=== PATIENT | female | born 1990 | race Two or more races ===

== ENCOUNTER 2019-09-25 08:19 | Emergency (ER) | payer MEDICARE, MEDICAID ==
[~2019-09-25] VITALS: Ht 154.9 cm; Wt 52.2 kg
[2019-09-25 08:55] VITALS: BP 132/79
== END 2019-09-25 09:23 | disposition home or self-care (01) ==
LOC: ER 08:19
DX: J02.9 Acute pharyngitis, unspecified (principal); J06.9 Acute upper respiratory infection, unspecified

== ENCOUNTER 2019-11-08 22:21 | Inpatient (IN) | payer MEDICARE, MEDICAID ==
[~2019-11-08] VITALS: Ht 152.4 cm; Wt 58.1 kg
[~2019-11-08 22:21] MED LIST: ACET325T82 PO; BISA5TAB PO; CALC0.25 PO; CLO01T PO; DIPH25CA66 PO; DOCU100T15 PO; GABA100C PO; MELA3TAB27 PO; MYCO180T PO; ONDA-144 PO; PANT40TA2 PO; POLY33504 PO; PRED-158 PO; SODI650T PO; TACR1GRA PO; VALG450T PO; [UNRECOGNIZED DRUG - CODE] PO
[2019-11-09] MEDS ORDERED: LORazepam 2MG/ML-1ML VIAL IV ONE (00:15)
[2019-11-09] MEDS ORDERED: ONDANSETRON HCL 4 MG/2 ML VIAL IV ONE (00:15)
[2019-11-09] MEDS ORDERED: MORPHINE SULFATE 4 MG/ML SYR/VIAL IV ONE (00:15)
[2019-11-09] MEDS ORDERED: SODIUM CHLORIDE 0.9% 1,000 ML IV ONE ×2 (00:15→01:30)
[2019-11-09 00:48] LABS: Albumin 3.3 g/dL (3.4-5.0); BUN/Creatinine Ratio 13.1; Calcium 9.1 mg/dL (8.5-10.1); Magnesium 1.5 mg/dL (1.6-2.6); Potassium 4.2 mmol/L (3.5-5.1)
[2019-11-09 00:57] LABS: Thyroid Stimulating Hormone 0.27 uIU/mL (0.358-3.74)
[2019-11-09 01:00] LABS: Bilirubin, Total 0.3 mg/dL (0.2-1.0); Total Protein 7.3 g/dL (6.4-8.2)
[2019-11-09] MEDS ORDERED: InsuLIN REG 1unit/0.01ml Soln (100units/ml) IV ONE (01:30)
[2019-11-09 01:45] LABS: Basophils # (auto) 0 10 ^3/uL (0-0.2); Basophils % (auto) 0.6 % (0.0-2.0); Eosinophils # (auto) 0 10 ^3/uL (0-0.8); Eosinophils % (auto) 0.3 % (0.0-7.0); Hematocrit 26.6 % (36.0-46.0); Hemoglobin 8.6 g/dL (12.2-16.2); Lymphocytes # (auto) 0.5 10 ^3/uL (0.4-5.4); Lymphocytes % (auto) 19.5 % (10.0-50.0); Mean Corpuscular Hemoglobin 28.8 pg (28.0-32.0); Mean Corpuscular Hgb Conc. 32.3 g/dL (32.0-36.0); Mean Corpuscular Volume 89.2 fL (80.0-100.0); Monocytes # (auto) 0.1 10 ^3/uL (0-1.3); Monocytes % (auto) 4.6 % (0.0-12.0); Platelet Count (auto) 101 10^3/uL (140-450); Red Blood Cells 2.98 10^6/uL (4.0-5.20); White Blood Cell 2.7 10^3/uL (4.4-10.8)
[2019-11-09 01:46] LABS: Red Cell Distribution Width 21.1 % (11.8-14.3)
[2019-11-09 01:59] LABS: INR 1.13 (0.9-1.15); Partial Thromboplastin Time 26.7 sec (23.64-32.05)
[2019-11-09] MEDS ORDERED: HYDROcodone-ACET 5/325MG TAB PO PRN (04:15)
[2019-11-09] MEDS ORDERED: BISACODYL 5 MG EC TAB PO PRN (04:15)
[2019-11-09] MEDS ORDERED: ACETAMINOPHEN 325 MG TAB PO PRN ×2 (04:15)
[2019-11-09] MEDS ORDERED: MORPHINE SULF INJ 2 MG/ML SYRINGE 1ML IV PRN ×2 (04:15→07:00)
[2019-11-09] MEDS ORDERED: ONDANSETRON ODT 4 MG TAB PO PRN (04:15)
[2019-11-09] MEDS ORDERED: ONDANSETRON HCL 4 MG/2 ML VIAL IV PRN (04:15)
[2019-11-09] MEDS ORDERED: DOCUSATE SOD 100 MG CAP PO PRN (04:15)
[2019-11-09] MEDS ORDERED: diphenhdrAMINE HCL 25 MG CAP PO PRN (04:15)
[2019-11-09] MEDS ORDERED: MORPHINE SULFATE 4 MG/ML SYR/VIAL IV PRN (04:15)
[2019-11-09] MEDS ORDERED: NITROGLYCERIN 0.4 MG SL TAB SL PRN (04:15)
[2019-11-09] MEDS ORDERED: DEXTROSE (50%) 50ML SYRG IV PRN (04:15)
[2019-11-09] MEDS ORDERED: PATIENTS OWN MEDICATION (Docusate Sodium 100 MG) PO PRN (04:15)
[2019-11-09 06:30] LABS: Basophils # (auto) 0 10 ^3/uL (0-0.2); Basophils % (auto) 0.8 % (0.0-2.0); Eosinophils # (auto) 0 10 ^3/uL (0-0.8); Eosinophils % (auto) 0.4 % (0.0-7.0); Hemoglobin 8.3 g/dL (12.2-16.2); Lymphocytes # (auto) 0.7 10 ^3/uL (0.4-5.4); Mean Corpuscular Hemoglobin 28.9 pg (28.0-32.0); Mean Corpuscular Hgb Conc. 31.8 g/dL (32.0-36.0); Mean Corpuscular Volume 90.9 fL (80.0-100.0); Monocytes # (auto) 0.1 10 ^3/uL (0-1.3); Monocytes % (auto) 4.2 % (0.0-12.0); Neutrophils # (auto) 1.7 10 ^3/uL (1.6-8.6); Neutrophils % (auto) 67.6 % (37.0-80.0); Nucleated Red Blood Cells % 0.1 %; Platelet Count (auto) 98 10^3/uL (140-450); Red Blood Cells 2.86 10^6/uL (4.0-5.20); White Blood Cell 2.5 10^3/uL (4.4-10.8)
[2019-11-09 06:32] LABS: Red Cell Distribution Width 21.3 % (11.8-14.3)
[2019-11-09] MEDS: SODIUM BICARBONATE 650 MG TAB PO SCH ×3 (06:53→17:30)
[2019-11-09] MEDS: cloNIDine HCL 0.1 MG TAB PO PRN (06:53)
[2019-11-09] MEDS: GABAPENTIN 100 MG CAP PO SCH ×3 (06:54→21:34)
--- NOTE | 2019-11-09 08:00 | NUR ---
Telemetry admit from ABDIR[facility] LEWIS admitted to Telemetry unit after minimal SBAR received. Patient oriented to Macey Mancilla, primary RN, unit, room, bed, and unit policies regarding patient care and visiting hours. Patient now on continuous telemetry monitoring, tele box # 25 and telemetry reading on arrival to unit is sinus tach at 109. Updated on POC and instructed to call for assistance as needed, patient verbalized understanding. Bed locked in lowest position, side rails up x2, call light within reach. Will continue to monitor q1hr and PRN.
[2019-11-09] MEDS: ACCU-CHEK COMFORT CURVE STRIP VI SCH ×4 (08:20→20:00)
[2019-11-09] MEDS: InsuLIN REG 1unit/0.01ml Soln (100units/ml) SC SCH ×4 (08:20→20:00)
[2019-11-09] MEDS: SODIUM CITRATE PO SCH ×3 (08:20→21:33)
[2019-11-09] MEDS: CITRIC ACID PO SCH ×3 (08:20→21:33)
[2019-11-09] MEDS: HYDROmorphone HCL 2 MG/ML VL IV PRN ×4 (09:32→21:34)
[2019-11-09] MEDS: predniSONE 5 MG TAB PO SCH (09:35)
[2019-11-09] MEDS: TACROLIMUS 1 MG CAP PO SCH ×2 (09:35→21:34)
[2019-11-09] MEDS: CALCITRIOL 0.25 MCG CAP PO SCH (09:35)
[2019-11-09] MEDS: POLYETHYLENE GLYCOL 17 GM PWDR PO SCH (09:36)
[2019-11-09] MEDS: MYCOPHENOLATE SODIUM 180 MG PO SCH ×2 (09:36→21:33)
[2019-11-09 09:54] VITALS: BP 161/104
[2019-11-09] MEDS ORDERED: ENOXAPARIN SOD 60 MG/0.6 ML SYRINGE SC ONE (10:00)
--- NOTE | 2019-11-09 10:02 | NUR ---
EKG COMPLETED, READ BY MD HOOPER. EKG PLACED IN CHART.
--- NOTE | 2019-11-09 10:03 | NUR ---
SPOKE WITH DR. HOOPER REGARDING PLATELET COUNT AND LOVENOX. AWARE OF PLATELET COUNT AT 98, ADVISED TO PROCEED WITH LOVENOX ORDER PATIENT HAS PULMONARY EMBOLISM.
[2019-11-09] MEDS: diphenhdrAMINE HCL 50 MG/1 ML VL IV PRN ×2 (10:25→22:35)
--- NOTE | 2019-11-09 11:15 | NUR ---
MRSA SWAB SENT TO LAB
[2019-11-09 11:20] LABS: Calcium 8.5 mg/dL (8.5-10.1); Potassium 3.9 mmol/L (3.5-5.1)
[2019-11-09 11:23] LABS: BUN/Creatinine Ratio 12.6
[2019-11-09] MEDS: MAGNESIUM SULFATE 1GM/100ML 100 ML IV SCH ×2 (11:34→13:00)
[2019-11-09 12:53] VITALS: BP 137/73
--- NOTE | 2019-11-09 14:46 | NUR ---
UA SENT TO LAB
[2019-11-09 15:36] LABS: Protein, Urine 65.9 mg/dL (0.0-11.9)
[2019-11-09 16:24] VITALS: BP 126/75
[2019-11-09] MEDS: PANTOPRAZOLE 40 MG TAB PO SCH (17:30)
[2019-11-09] MEDS: Melatonin 3 MG TAB PO SCH (17:30)
--- NOTE | 2019-11-09 20:00 | NUR ---
RECEIVED PATIENT FROM DAY SHIFT RN. PATIENT RESTING IN BED. NO S/S OF DISTRESS NOTED. C/O PAIN @ 8/10 AFTER PAIN MEDICATION GIVEN EARLIER. REINFORCED PATIENT THE SCHEDULE OF PAIN MANAGEMENT. WILL COME BACK FOR PAIN MEDICATION LATER WHEN THE TIME IS DUE AND PER PATIENT REQUESTS. POC INSTRUCTED AND ENCOURAGED PATIENT TO CALL FOR DIRECTOR OF TEACHING AND LEARNING IF NEEDED. BED IN LOWEST POSITION WITH SIDE RAILS UP X 2. CALL PHILIP WITHIN REACH. CONTINUE TO MONITOR FOR CHANGES Q1H AND PRN.
--- NOTE | 2019-11-09 20:20 | NUR ---
ACCU-CHECK, BS 278. PATIENT REFUSED INSULIN AND STATED SHE DID NOT HAVE DM. INSTRUCTED PATIENT THE NECESSARY AND BENEFITS OF TAKING INSULIN, PATIENT VERBALIZED UNDERSTANDING BUT STILL REFUSED. MD AWARE PER DAY SHIFT RN. CONTINUE TO MONITOR.
--- NOTE | 2019-11-09 21:35 | NUR ---
MEDICATED PATIENT FOR PAIN @ 10 ORDERED. CONTINUE TO MONITOR
[2019-11-09 22:00] VITALS: BP 131/99
--- NOTE | 2019-11-09 22:35 | NUR ---
MEDICATED PATIENT FOR ITCHING ORDERED. CONTINUE TO MONITOR.
[2019-11-10] MEDS: SODIUM BICARBONATE 650 MG TAB PO SCH ×4 (00:23→18:07)
[2019-11-10] MEDS: ACCU-CHEK COMFORT CURVE STRIP VI SCH ×6 (00:23→19:58)
--- NOTE | 2019-11-10 00:24 | NUR ---
ACCU-CHECK, BS 262. PATIENT STILL REFUSED INSULIN. CONTINUE TO MONITOR.
[2019-11-10] MEDS: HYDROmorphone HCL 2 MG/ML VL IV PRN ×5 (01:49→19:59)
--- NOTE | 2019-11-10 01:49 | NUR ---
MEDICATED PATIENT FOR PAIN @ 10 ORDERED. CONTINUE TO MONITOR
[2019-11-10] MEDS: InsuLIN REG 1unit/0.01ml Soln (100units/ml) SC SCH ×6 (04:00→19:58)
--- NOTE | 2019-11-10 04:29 | NUR ---
ACCU-CHECK, BS 190. PATIENT STILL REFUSED INSULIN. CONTINUE TO MONITOR.
[2019-11-10 05:00] VITALS: BP 141/104
[2019-11-10 06:10] LABS: Basophils # (auto) 0 10 ^3/uL (0-0.2); Basophils % (auto) 1.3 % (0.0-2.0); Eosinophils # (auto) 0 10 ^3/uL (0-0.8); Eosinophils % (auto) 0.6 % (0.0-7.0); Hematocrit 25.1 % (36.0-46.0); Hemoglobin 8.3 g/dL (12.2-16.2); Lymphocytes # (auto) 0.5 10 ^3/uL (0.4-5.4); Lymphocytes % (auto) 22.8 % (10.0-50.0); Mean Corpuscular Hemoglobin 29.6 pg (28.0-32.0); Mean Corpuscular Hgb Conc. 33.1 g/dL (32.0-36.0); Mean Corpuscular Volume 89.6 fL (80.0-100.0); Monocytes # (auto) 0.1 10 ^3/uL (0-1.3); Monocytes % (auto) 3.2 % (0.0-12.0); Neutrophils # (auto) 1.6 10 ^3/uL (1.6-8.6); Neutrophils % (auto) 72.1 % (37.0-80.0); Platelet Count (auto) 108 10^3/uL (140-450); Red Blood Cells 2.81 10^6/uL (4.0-5.20); White Blood Cell 2.3 10^3/uL (4.4-10.8)
[2019-11-10 06:11] LABS: Red Cell Distribution Width 20.9 % (11.8-14.3)
[2019-11-10] MEDS: GABAPENTIN 100 MG CAP PO SCH ×3 (06:16→21:24)
[2019-11-10] MEDS: diphenhdrAMINE HCL 50 MG/1 ML VL IV PRN ×2 (06:16→14:38)
[2019-11-10] MEDS: CITRIC ACID PO SCH ×3 (06:16→21:24)
[2019-11-10] MEDS: SODIUM CITRATE PO SCH ×3 (06:16→21:24)
--- NOTE | 2019-11-10 06:16 | NUR ---
MEDICATED PATIENT FOR PAIN @ 05/13 ORDERED. WELL ITCHING MEDICATION. CONTINUE TO MONITOR.
[2019-11-10 08:00] VITALS: BP 163/98
[2019-11-10] MEDS: cloNIDine HCL 0.1 MG TAB PO PRN (08:23)
[2019-11-10 08:49] LABS: BUN/Creatinine Ratio 11.1; Calcium 8.7 mg/dL (8.5-10.1); Potassium 4.6 mmol/L (3.5-5.1)
--- NOTE | 2019-11-10 08:57 | NUR ---
I called [facility] [phone] and spoke with Nursing Electrical Tech/Project Manager Arianna regarding the status of this transfer request. Per Arianna, Dr. Philip Martinez is re-evaluating the request-Arianna will give me a call back to let me know if they are willing to accept this patient.
[2019-11-10 09:00] VITALS: BP 163/98
[2019-11-10] MEDS ORDERED: ENOXAPARIN SOD 60 MG/0.6 ML SYRINGE SC SCH (10:00)
[2019-11-10] MEDS: MYCOPHENOLATE SODIUM 180 MG PO SCH ×2 (10:00→21:24)
[2019-11-10] MEDS ORDERED: VALGANCICLOVIR HYDROCHLORIDE 450 MG PO SCH (10:00)
[2019-11-10] MEDS: predniSONE 5 MG TAB PO SCH (10:23)
[2019-11-10] MEDS: POLYETHYLENE GLYCOL 17 GM PWDR PO SCH (10:24)
[2019-11-10] MEDS: TACROLIMUS 1 MG CAP PO SCH ×2 (10:24→21:24)
[2019-11-10] MEDS: CALCITRIOL 0.25 MCG CAP PO SCH (10:24)
--- NOTE | 2019-11-10 10:46 | NUR ---
DR HOOPER BEDSIDE WITH PATIENT
--- NOTE | 2019-11-10 11:53 | NUR ---
I received a call back from Nursing Crate Opener Arianna at [facility]-she let me know that they are not accepting this patient for transfer due to it being a lateral transfer-they will notify . I made Dr. Milian aware-he asked that I reach out to [facility] and [facility]. I called the [facility] Transfer Center [phone] and spoke with Randy, he said they do not do interventional cardiology at [facility]. I faxed transfer packet to [facility].
--- NOTE | 2019-11-10 12:00 | NUR ---
LOVENOX ORDER CANCELED BY DR MENESES. PER DR HOOPER, I CHECKED WITH DR MENESES REGARDING ADDING LOVENOX ORDER BACK ON FOR PE. DR MENESES IS OK WITH PATIENT RECEIVING LOVENOX. ORDERS RECEIVED AND CARRIED OUT FOR LOVENOX
--- NOTE | 2019-11-10 12:10 | NUR ---
I faxed transfer packet to [facility] Transfer [facility].
[2019-11-10 13:00] VITALS: BP 130/82
[2019-11-10 13:10] LABS: % Iron Saturation 15.3 % (15-50)
[2019-11-10] MEDS ORDERED: SODIUM FERR GLUC 62.5MG/5ML 125 MG in SODIUM CHL 0.9% 100 ML IV ONE (13:15)
--- NOTE | 2019-11-10 14:14 | NUR ---
I received a call from Lynn at [facility] Transfer [facility], provided her with additional clinical information as requested-she will give me a call back to let me know if they are able to accept this patient.
[2019-11-10] MEDS ORDERED: diphenhdrAMINE HCL 50 MG/1 ML VL ONE (14:34)
[2019-11-10] MEDS ORDERED: ENOXAPARIN SOD 60 MG/0.6 ML SYRINGE SC ONE (15:30)
[2019-11-10 16:49] VITALS: BP 132/75
[2019-11-10] MEDS: Melatonin 3 MG TAB PO SCH (18:00)
[2019-11-10] MEDS: PANTOPRAZOLE 40 MG TAB PO SCH (18:05)
--- NOTE | 2019-11-10 20:00 | NUR ---
RECEIVED PATIENT FROM DAY SHIFT RN. PATIENT RESTING IN BED. NO S/S OF DISTRESS NOTED. C/O PAIN @ 8/10. MEDICATED PATIENT ORDERED. ACCU-CHECK, BS 313. PATIENT STILL REFUSED INSULIN. MD AWARE. SWOLLEN NOTED ON LEFT WRIST. POC INSTRUCTED AND ENCOURAGED PATIENT TO CALL FOR LAWN MOWER IF NEEDED. BED IN LOWEST POSITION WITH SIDE RAILS UP X 2. CALL PHILIP WITHIN REACH. CONTINUE TO MONITOR FOR CHANGES Q1H AND PRN.
--- NOTE | 2019-11-10 20:42 | NUR ---
HOSPITALIST SEGUNDO CAME TO FLOOR FOR ROUND. REPORTED PATIENT'S LEFT WRIST SWOLLEN HURT THIS AFTERNOON. ORDERED TO MONITOR AND NO X-RAY NEEDED AT THIS TIME. CONTINUE MONITOR.
[2019-11-10] MEDS ORDERED: EPOETIN ALFA 10,000 UNIT/1 ML VIAL SC ONE (21:00)
[2019-11-10 22:00] VITALS: BP 134/95
[2019-11-11] VITALS (7 sets, daily range): BP systolic 140–163; BP diastolic 83–97
[2019-11-11] MEDS: SODIUM BICARBONATE 650 MG TAB PO SCH ×4 (00:07→17:17)
[2019-11-11] MEDS: diphenhdrAMINE HCL 50 MG/1 ML VL IV PRN ×3 (00:08→16:20)
[2019-11-11] MEDS: HYDROmorphone HCL 2 MG/ML VL IV PRN ×6 (00:09→21:20)
[2019-11-11] MEDS: ACCU-CHEK COMFORT CURVE STRIP VI SCH ×6 (00:09→20:41)
--- NOTE | 2019-11-11 00:18 | NUR ---
MEDICATED PATIENT FOR PAIN @ 05/13 ORDERED. WELL ITCHING MEDICATION. ACCU-CHECK, BS 226. PATIENT REFUSED INSULIN. CONTINUE TO MONITOR.
[2019-11-11] MEDS: InsuLIN REG 1unit/0.01ml Soln (100units/ml) SC SCH ×6 (04:00→20:15)
--- NOTE | 2019-11-11 04:06 | NUR ---
ACCU-CHECK, BS 180. PATIENT REFUSED INSULIN. MEDICATED PATIENT FOR PAIN @ 05/13 ORDERED. CONTINUE TO MONITOR
--- NOTE | 2019-11-11 04:52 | NUR ---
RECEIVED CALL FROM SHILO FROM [facility]. UPDATED ON PATIENT'S CURRENT CONDITION. WAITING FOR BED.
[2019-11-11] MEDS: GABAPENTIN 100 MG CAP PO SCH ×3 (05:37→21:45)
[2019-11-11] MEDS: CITRIC ACID PO SCH ×3 (05:37→21:44)
[2019-11-11] MEDS: SODIUM CITRATE PO SCH ×3 (05:37→21:44)
[2019-11-11 05:40] LABS: Basophils # (auto) 0 10 ^3/uL (0-0.2); Eosinophils # (auto) 0 10 ^3/uL (0-0.8); Hemoglobin 7.8 g/dL (12.2-16.2); Lymphocytes # (auto) 0.6 10 ^3/uL (0.4-5.4); Monocytes # (auto) 0.1 10 ^3/uL (0-1.3)
[2019-11-11 05:46] LABS: Basophils % (auto) 1.6 % (0.0-2.0); Hematocrit 23.2 % (36.0-46.0); Lymphocytes % (auto) 34.2 % (10.0-50.0); Mean Corpuscular Hemoglobin 29.7 pg (28.0-32.0); Mean Corpuscular Hgb Conc. 33.4 g/dL (32.0-36.0); Monocytes % (auto) 5.8 % (0.0-12.0); Neutrophils % (auto) 57.4 % (37.0-80.0); Platelet Count (auto) 93 10^3/uL (140-450); Red Blood Cells 2.61 10^6/uL (4.0-5.20)
[2019-11-11 05:49] LABS: Red Cell Distribution Width 21.1 % (11.8-14.3); White Blood Cell 1.8 10^3/uL (4.4-10.8)
--- NOTE | 2019-11-11 05:50 | NUR ---
CRITICAL RECEIVED CRITICAL CALL FROM ISREAL ALMOND ROASTER, PATIENT'S WBC 1.8. WILL PAGE HOSPITALIST. CONTINUE TO MONITOR.
[2019-11-11 06:01] LABS: Calcium 8.5 mg/dL (8.5-10.1); Potassium 4.1 mmol/L (3.5-5.1)
[2019-11-11 06:03] LABS: BUN/Creatinine Ratio 9.9
--- NOTE | 2019-11-11 06:06 | NUR ---
HOSPITALIST Called/paged NANCY RAYMOND called re:PATIENT'S CRITICAL WBC 1.8. Waiting for call back. Continue care.
--- NOTE | 2019-11-11 06:19 | NUR ---
HOSPITALIST returned call NANCY RAYMOND returned call, updated on patient status and reason for call, NO NEW ORDER RECEIVED. Continue care.
--- NOTE | 2019-11-11 09:24 | NUR ---
I received a call from Nancy at the [facility] Transfer Center letting me know that per Dr. Milian he wants a hospitalist to accept this patient-not cardiology and they are at capacity for their medical hospitalists-they can not accept this patient at this time.
--- NOTE | 2019-11-11 09:40 | NUR ---
DR THOMAS ON UNIT
[2019-11-11] MEDS: MYCOPHENOLATE SODIUM 180 MG PO SCH ×2 (09:44→21:44)
[2019-11-11] MEDS: predniSONE 5 MG TAB PO SCH (09:44)
[2019-11-11] MEDS: CALCITRIOL 0.25 MCG CAP PO SCH (09:45)
[2019-11-11] MEDS: TACROLIMUS 1 MG CAP PO SCH ×2 (09:45→21:45)
[2019-11-11] MEDS: POLYETHYLENE GLYCOL 17 GM PWDR PO SCH (09:45)
--- NOTE | 2019-11-11 10:56 | NUR ---
RECEIVED COMMUNICATION ORDER FROM DR THOMAS TO HAVE LAB SEND CMV VIRAL LOAD. SPOKE TO DINA IN LAB WHO SAID SHE WILL HANDLE.
--- NOTE | 2019-11-11 11:06 | NUR ---
DR HOOPER REQUESTED SCD'S TO BE PLACED ON PATIENT. UNABLE TO PLACE ORDER THE SYSTEM GENERATES A MESSAGE THAT THIS IS A DUPLICATE ORDER AND I CANNOT OVERRIDE. SCD'S PLACED ON PATIENT
--- NOTE | 2019-11-11 11:45 | NUR ---
PAGED DR THOMAS REGARDING PHARMACIST QUESTIONS ON THE ORDER FOR GANCICLOVIR.
[2019-11-11] MEDS ORDERED: IRON SUCROSE COMPLEX 200 MG in SODIUM CHL 0.9% 100 ML IV SCH (12:00)
[2019-11-11] MEDS: SODIUM FERR GLUC 62.5MG/5ML 125 MG in SODIUM CHL 0.9% 100 ML IV SCH (12:08)
--- NOTE | 2019-11-11 13:44 | NUR ---
PHARMACIST KATHRYN SPOKE TO DR TROTTER REGARDING ORDER FOR GANCICLOVIR. GANCICLOVIR IS ON HOLD FOR NOW. I WILL INFORM DR THOMAS WHEN HE RETURNS MY PAGE
--- NOTE | 2019-11-11 14:28 | NUR ---
INFORMED DR THOMAS THAT THE GANCICLOVIR MEDICATION IS ON HOLD PER DR TROTTER WE ARE WORKING TO TRANSFER PATIENT TO A HIGHER LEVEL OF CARE.
[2019-11-11] MEDS: PANTOPRAZOLE 40 MG TAB PO SCH (17:03)
[2019-11-11] MEDS: Melatonin 3 MG TAB PO SCH (17:17)
--- NOTE | 2019-11-11 20:14 | NUR ---
Patient had a number of home medications with her at bedside. Meds placed into medication belongings bag. Will send to pharmacy in AM.
--- NOTE | 2019-11-11 20:52 | NUR ---
MD Milian called to notify me that patient was going to be transferred to [facility] under care of a transplant surgeon. Patient will be transferred tomorrow.
--- NOTE | 2019-11-11 21:58 | NUR ---
Case management for [facility] called to inform me that she had received a request from MD Milian to have patient transferred to [facility]. No beds were available at that time but she would keep me informed of any developments.
--- NOTE | 2019-11-11 22:02 | NUR ---
Evelin, transportation logistics internship for [facility], called and wanted to know why patient was set to be transferred to [facility]. Evelin stated that patient had pancreatic and kidney transplant at [facility] and should return there for treatment. I told her that MD Milian arranged the transfer. She wished to speak to him so I transferred her to [facility] to get his number.
--- NOTE | 2019-11-11 22:08 | NUR ---
Patient's mother called and expressed her concern that MD Mendez would not be treating patient. Both patient and family would like patient to be transferred to [facility] in [place].
--- NOTE | 2019-11-11 22:14 | NUR ---
MD Mendez, patient's transplant surgeon at [facility], called and spoke to me regarding patient. Per MD, patient should be taking Tacrolimus 5 mg PO BID, Predisone 10 mg PO Daily, and Myfortic 180 mg PO BID. I informed him that patient was currently taking Tacrolimus 1 mg PO BID, Prednisone 5 mg PO Daily, and Myfortic 180mg PO BID (patient has not been receiving medication because she has not brought it in).
--- NOTE | 2019-11-11 22:21 | NUR ---
MD Milian notified of MD Mendez wanting patient to be transferred to [facility], his recommended medications, and patient's family's wishes. MD Garcia will be contacting MD Mendez.
[2019-11-11] MEDS: cloNIDine HCL 0.1 MG TAB PO PRN (22:28)
[2019-11-11] MEDS ORDERED: FILGRASTIM(TBO) 480 MCG/0.8 ML SYRG SC ONE (22:30)
[2019-11-11] MEDS ORDERED: methylPREDNISolone SOD SUCC 125 MG/2 ML VL IV ONE (22:45)
--- NOTE | 2019-11-11 22:54 | NUR ---
MD Milian called and notified me of his new orders and to contact [facility] to see if bed is available.
--- NOTE | 2019-11-11 23:02 | NUR ---
Attempted to call [facility]. No response.
--- NOTE | 2019-11-11 23:58 | NUR ---
Called and left a message for Stull Installer at [facility]. Awaiting call back.
[2019-11-12] VITALS (10 sets, daily range): BP systolic 143–164; BP diastolic 85–98
[2019-11-12] MEDS: SODIUM BICARBONATE 650 MG TAB PO SCH ×4 (00:07→17:28)
[2019-11-12] MEDS: ACCU-CHEK COMFORT CURVE STRIP VI SCH ×6 (00:07→19:50)
[2019-11-12] MEDS: diphenhdrAMINE HCL 50 MG/1 ML VL IV PRN ×3 (00:08→17:18)
[2019-11-12] MEDS: InsuLIN REG 1unit/0.01ml Soln (100units/ml) SC SCH ×6 (00:30→19:50)
--- NOTE | 2019-11-12 02:00 | NUR ---
Packed red blood cell infusion started.
--- NOTE | 2019-11-12 04:12 | NUR ---
Mary from [facility] called and notified me that there was a room available. I notified her that patient would likely be transferred in AM to [facility], per MD Milian's wishes
[2019-11-12] MEDS: GABAPENTIN 100 MG CAP PO SCH ×3 (05:49→22:36)
[2019-11-12] MEDS: CITRIC ACID PO SCH ×3 (05:51→22:00)
[2019-11-12] MEDS: SODIUM CITRATE PO SCH ×3 (05:51→22:00)
[2019-11-12] MEDS: cloNIDine HCL 0.1 MG TAB PO PRN ×3 (05:52→17:29)
[2019-11-12] MEDS: HYDROmorphone HCL 2 MG/ML VL IV PRN ×4 (06:05→19:56)
--- NOTE | 2019-11-12 07:43 | NUR ---
Opening Note Assumed pt care from [facility] nurse. Pt is a/ox4 with no s/s of distress or SOB. Pt is currently sitting upright in bed with no complaints at this time. Discussed POC with pt and pending transfer; pt verbalized understanding. Safety measures maintained with call light within reach, bed in lowest position and side rails up. Will continue to monitor.
--- NOTE | 2019-11-12 07:51 | NUR ---
D/C Planning Dr Milian called, stated that he would call [facility] for update on bed status. If not [facility], then to [facility]. stated he would let me know updated POC. Addendum: 11/12/19 at 0805 by FREDRICK RESENDEZ RN RN Per Dr Milian, Pt's MD at [facility] is okay with pt going to [facility]. Will call [facility] to inquire transfer. Will update MD and Pt on [facility] decision. Addendum: 11/12/19 at 0817 by FREDRICK RESENDEZ RN RN Spoke with Eric from [facility] Transfer center [phone]. Per staff member, case was closed due to the belief that pt would be transferred to [facility]. Eric stated that they would opening the case and will send to finance department for approval. Staff stated that they would call us back and update us on plan and possibility of open bed. Will notify
--- NOTE | 2019-11-12 08:57 | NUR ---
[facility] Bak[facility] Reyes from [facility] Bak[facility] called and notified that pt has been financially cleared for transfer. Per staff, case will be transferred to bed assignment and they will call when bed is available. Will notify SS.
[2019-11-12] MEDS: CALCITRIOL 0.25 MCG CAP PO SCH (09:22)
[2019-11-12] MEDS: TACROLIMUS 1 MG CAP PO SCH ×2 (09:22→22:37)
[2019-11-12] MEDS: predniSONE 5 MG TAB PO SCH (09:22)
[2019-11-12] MEDS: POLYETHYLENE GLYCOL 17 GM PWDR PO SCH (09:23)
--- NOTE | 2019-11-12 09:34 | NUR ---
I called Dr. Milian to discuss the plan of care for this patient-he said patient has been accepted at [facility] by Dr. Anguiano. I called [facility] Transfer Center [phone] and left message asking about bed availability.
[2019-11-12] MEDS ORDERED: PATIENTS OWN MEDICATION INJ ONE (10:00)
[2019-11-12 10:47] LABS: Hematocrit 30.4 % (36.0-46.0); Mean Corpuscular Hemoglobin 29.4 pg (28.0-32.0); Mean Corpuscular Hgb Conc. 32.8 g/dL (32.0-36.0); Mean Corpuscular Volume 89.6 fL (80.0-100.0); Platelet Count (auto) 96 10^3/uL (140-450); Red Blood Cells 3.39 10^6/uL (4.0-5.20); White Blood Cell 4.2 10^3/uL (4.4-10.8)
[2019-11-12 10:59] LABS: Red Cell Distribution Width 20.4 % (11.8-14.3)
[2019-11-12 11:02] LABS: Basophils % (manual) 0 (0.0-2.0); Blast Cells 0; Eosinophils % (manual) 0 (0-7); Metamyelocytes % 0; Myelocytes % 0; Promyelocytes % 0; Reactive Lymphocytes 0
[2019-11-12 11:04] LABS: BUN/Creatinine Ratio 11.2; Potassium 4.6 mmol/L (3.5-5.1)
--- NOTE | 2019-11-12 11:20 | NUR ---
Dr Milian at Bedside MD to see pt. Discussed POC with pt and plans to transfer pt out. No new orders at this time.
[2019-11-12 11:47] LABS: Band Neutrophils % (manual) 4; Lymphocytes % (manual) 5 (10.0-50.0); Monocytes % (manual) 5 (0-12)
[2019-11-12] MEDS: SODIUM FERR GLUC 62.5MG/5ML 125 MG in SODIUM CHL 0.9% 100 ML IV SCH (12:17)
--- NOTE | 2019-11-12 14:38 | NUR ---
I called [facility] Transfer Center [phone] and left message asking about bed availability.
--- NOTE | 2019-11-12 14:43 | NUR ---
D/C Update Spoke with Carrie, , with case management at [facility]. Pt has been accepted under Dr Magallon into room [address] [place] [address]. [address] is [address] [place] [address]. Carrie requested that the admission be after 1900. Number to call to give report is [phone]. Vesta with [facility] notified, she wtated she will set up [facility] transportation. Paged MD with updated status. Will continue to monitor. Addendum: 11/12/19 at 1504 by FREDRICK RESENDEZ RN RN MD Aware of acceptance; orders to transfer. Will implement d/c.
--- NOTE | 2019-11-12 14:57 | NUR ---
Patient will be going to [facility] tele-room 6122, Dr. Anguiano accepting. I called [facility] ([phone]) and spoke with Ray-set knot picker cloth time for 1829-faxed Medicare PCS form to [facility]-patient's nurse made aware-I also informed Dr Milian.
[2019-11-12] MEDS ORDERED: D5W 5% IV ONE (15:00)
[2019-11-12] MEDS ORDERED: GANCICLOVIR SODIUM IV ONE (15:00)
--- NOTE | 2019-11-12 15:10 | NUR ---
Signed Transfer Paperwork Pt signed transfer paper work; agreeable to transfer.
--- NOTE | 2019-11-12 15:30 | NUR ---
POM Pt given back POM for transport. Pt signed associated forms. Forms placed in chart.
--- NOTE | 2019-11-12 16:19 | NUR ---
Attempted to Call Report Spoke with Peyton [phone], at [facility]. Unable to reach hemodialysis charge nurse to give report. Gave number to call back for report. Awaiting call back.
--- NOTE | 2019-11-12 16:42 | NUR ---
Report Called to [facility] Spoke with lauren Gallegos RN at [facility], . Report given. All questions were answered. RN aware of POC and estimate warp picker time.
[2019-11-12] MEDS: PANTOPRAZOLE 40 MG TAB PO SCH (17:18)
[2019-11-12] MEDS: Melatonin 3 MG TAB PO SCH (17:29)
--- NOTE | 2019-11-12 18:07 | NUR ---
Tele 25 Removed and Sent Back to ICU Staff made aware.
--- NOTE | 2019-11-12 18:32 | NUR ---
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 Will notify pt.
--- NOTE | 2019-11-12 23:28 | NUR ---
Discharge Transfers Patient is being transferred to [facility]. Patient is to follow up with accepting doctor at the receiving facility. Patient left the facility in a stable condition.
[2019-11-13] MEDS ORDERED: GANCICLOVIR SODIUM IV SCH (10:00)
[2019-11-13] MEDS ORDERED: D5W 5% IV SCH (10:00)
== END 2019-11-12 23:27 | disposition short-term general hospital (02) | DRG 280 ==
LOC: ER 22:22 → TELE 22:23 → TELE-CENTR 11-09 07:28
PROVIDERS: ADMIT Hospitalist; ATTEND Internal Medicine
PROC: 30233N1 Transfusion of Nonautologous Red Blood Cells into Peripheral Vein, Percutaneous Approach (ICD-10-PCS; principal; 2019-11-12)
DX: I21.A1 Myocardial infarction type 2 (principal); I50.43 Acute on chronic combined systolic (congestive) and diastolic (congestive) heart failure; N17.0 Acute kidney failure with tubular necrosis; T86.11 Kidney transplant rejection; D61.818 Other pancytopenia; I13.0 Hypertensive heart and chronic kidney disease with heart failure and stage 1 through stage 4 chronic kidney disease, or unspecified chronic kidney disease; Z94.83 Pancreas transplant status; N17.9 Acute kidney failure, unspecified; B25.9 Cytomegaloviral disease, unspecified; B25.8 Other cytomegaloviral diseases; N18.3 Chronic kidney disease, stage 3 (moderate); D63.1 Anemia in chronic kidney disease; E88.09 Other disorders of plasma-protein metabolism, not elsewhere classified; I05.0 Rheumatic mitral stenosis; E11.22 Type 2 diabetes mellitus with diabetic chronic kidney disease; E11.65 Type 2 diabetes mellitus with hyperglycemia; D50.9 Iron deficiency anemia, unspecified; Z88.0 Allergy status to penicillin; Z79.899 Other long term (current) drug therapy; Z90.49 Acquired absence of other specified parts of digestive tract; Z79.4 Long term (current) use of insulin
CPT/HCPCS: 36415; 71045; 73110; 73130; 80048; 80053; 80061; 80197; 82570; 82728; 82962; 83036; 83540; 83550; 83615; 83735; 83880; 84100; 84156; 84300; 84443; 84484; 84702; 85007; 85025; 85027; 85045; 85610; 85730; 86644; 86645; 86850; 86900; 86901; 86920; 87081; 87086; 87497; 93005; 93970; 96361; 96374; 96375; G0378; J0885; J1447; J1570; J1815; J2405; J7060; J7507

== ENCOUNTER → 2019-11-24 | Emergency (ER) | payer MEDICARE, MEDICAID ==
[~2019-11-24] VITALS: Ht 154.9 cm; Wt 49.9 kg
[~2019-11-24] MED LIST changes: +cloNIDine HCL 0.1 MG TAB PO ONE
[2019-11-24 19:31] LABS: Basophils # (auto) 0 10 ^3/uL (0-0.2); Basophils % (auto) 0.7 % (0.0-2.0); Eosinophils # (auto) 0 10 ^3/uL (0-0.8); Eosinophils % (auto) 0.2 % (0.0-7.0); Hematocrit 33.6 % (36.0-46.0); Lymphocytes # (auto) 0.3 10 ^3/uL (0.4-5.4); Lymphocytes % (auto) 5.8 % (10.0-50.0); Mean Corpuscular Hemoglobin 30.6 pg (28.0-32.0); Mean Corpuscular Hgb Conc. 32.8 g/dL (32.0-36.0); Mean Corpuscular Volume 93.3 fL (80.0-100.0); Monocytes # (auto) 0.2 10 ^3/uL (0-1.3); Monocytes % (auto) 3.2 % (0.0-12.0); Neutrophils # (auto) 5.4 10 ^3/uL (1.6-8.6); Neutrophils % (auto) 90.1 % (37.0-80.0); Nucleated Red Blood Cells % 0.1 %; Platelet Count (auto) 201 10^3/uL (140-450)
[2019-11-24 19:34] LABS: Red Cell Distribution Width 21.5 % (11.8-14.3)
[2019-11-24 19:45] VITALS: BP 160/100
[2019-11-24 19:49] LABS: Albumin 3.2 g/dL (3.4-5.0); Calcium 8.4 mg/dL (8.5-10.1); Potassium 4.7 mmol/L (3.5-5.1)
[2019-11-24 19:52] LABS: Bilirubin, Total 0.4 mg/dL (0.2-1.0); Total Protein 6.9 g/dL (6.4-8.2)
[2019-11-24 20:12] LABS: Urine Bacteria FEW /hpf (None Seen); Urine Blood Negative /uL (Negative); Urine Specific Gravity 1.011 (1.001-1.035); Urine WBC 44 /hpf (0 - 5)
== END | disposition home or self-care (01) ==
LOC: ER 18:22
DX: S52.502A Unspecified fracture of the lower end of left radius, initial encounter for closed fracture (principal); N39.0 Urinary tract infection, site not specified; I16.0 Hypertensive urgency; I10 Essential (primary) hypertension; E11.9 Type 2 diabetes mellitus without complications; Z90.49 Acquired absence of other specified parts of digestive tract; W10.8XXA Fall (on) (from) other stairs and steps, initial encounter; Y93.89 Activity, other specified; Y92.89 Other specified places as the place of occurrence of the external cause; Y99.8 Other external cause status
CPT/HCPCS: 29125; 36415; 73100; 80053; 81001; 81025; 85025

== ENCOUNTER 2020-04-21 10:26 | Emergency (ER) | payer MEDICARE, MEDICAID ==
[~2020-04-21] VITALS: Ht 160 cm; Wt 54.4 kg
[~2020-04-21 10:26] MED LIST changes: -cloNIDine HCL 0.1 MG TAB PO ONE
[2020-04-21 11:39] LABS: Calcium 8.9 mg/dL (8.5-10.1); Potassium 4.5 mmol/L (3.5-5.1)
[2020-04-21 11:43] LABS: BUN/Creatinine Ratio 12.6; Bilirubin, Total 0.4 mg/dL (0.2-1.0); Total Protein 7.1 g/dL (6.4-8.2)
[2020-04-21 11:54] LABS: Hematocrit 22.7 % (36.0-46.0); Hemoglobin 7.2 g/dL (12.2-16.2); Mean Corpuscular Hemoglobin 34.1 pg (28.0-32.0); Mean Corpuscular Hgb Conc. 31.6 g/dL (32.0-36.0); Mean Corpuscular Volume 108.1 fL (80.0-100.0); Platelet Count (auto) 45 10^3/uL (140-450); Red Cell Distribution Width 16.7 % (11.8-14.3)
[2020-04-21 12:11] LABS: Eosinophils % (auto) 1.2 % (0.0-7.0); Monocytes % (auto) 16.3 % (0.0-12.0); Neutrophils % (auto) 29.5 % (37.0-80.0)
[2020-04-21 12:12] LABS: Basophils # (auto) 0 10 ^3/uL (0-0.2); Eosinophils # (auto) 0 10 ^3/uL (0-0.8); Lymphocytes # (auto) 0.1 10 ^3/uL (0.4-5.4); Monocytes # (auto) 0 10 ^3/uL (0-1.3); Neutrophils # (auto) 0 10 ^3/uL (1.6-8.6); Nucleated Red Blood Cells % 2.1 %
[2020-04-21 12:45] LABS: White Blood Cell 0.2 10^3/uL (4.4-10.8)
[2020-04-21] MEDS ORDERED: MORPHINE SULF INJ 2 MG/ML SYRINGE 1ML IV ONE ×3 (13:45→19:15)
[2020-04-21] MEDS ORDERED: ONDANSETRON HCL 4 MG/2 ML VIAL IV ONE ×2 (13:45→18:30)
[2020-04-21] MEDS ORDERED: diphenhdrAMINE HCL 50 MG/1 ML VL IV ONE ×2 (15:15→18:30)
[2020-04-21] MEDS ORDERED: SODIUM CHLORIDE 0.9% 500 ML IV ONE (19:00)
[2020-04-21] MEDS ORDERED: ACETAMINOPHEN 325 MG TAB PO ONE (20:15)
[2020-04-21 21:25] LABS: Urine Bacteria MANY /hpf (None Seen); Urine Blood 3+ /uL (Negative); Urine Mucus FEW (None Seen); Urine Specific Gravity 1.021 (1.001-1.035); Urine WBC 23 /hpf (0 - 5)
[2020-04-22] MEDS ORDERED: MORPHINE SULFATE 4 MG/ML SYR/VIAL IV ONE (01:00)
[2020-04-22] MEDS ORDERED: diphenhdrAMINE HCL 50 MG/1 ML VL IV ONE (04:45)
[2020-04-22 07:48] VITALS: BP 141/94
== END 2020-04-22 01:29 | disposition short-term general hospital (02) ==
LOC: ER 10:26 → EDBD 10:26 → ER 04-22 01:29
DX: E11.65 Type 2 diabetes mellitus with hyperglycemia (principal); D61.818 Other pancytopenia; E44.0 Moderate protein-calorie malnutrition; I10 Essential (primary) hypertension; Z90.49 Acquired absence of other specified parts of digestive tract; Z88.0 Allergy status to penicillin; Z68.21 Body mass index [BMI] 21.0-21.9, adult; Z79.899 Other long term (current) drug therapy; Z94.0 Kidney transplant status; Z20.828 Contact with and (suspected) exposure to other viral communicable diseases
CPT/HCPCS: 36415; 71045; 74176; 80053; 81001; 82010; 83605; 83880; 84702; 85025; 87040; 87086; 87426; 96361; 96374; 96375; 96376; 99285; C9803; J1200; J2270; J2405; J7040; U0003